=== PATIENT | female | born 1980 | race Two or more races ===

== ENCOUNTER 2023-12-30 07:21 | Emergency (ER) | payer OTHER ==
[~2023-12-30] VITALS: Ht 162.6 cm; Wt 83.5 kg
[2023-12-30 08:31] LABS: HEMATOCRIT 39.4 % (36.0-45.00); HEMOGLOBIN 13.1 g/dL (12.0-15.00); MEAN CELL VOLUME 87.5 fL (80.00-100.00); MEAN CORPUSCULAR HEMOGLOBIN 29.1 pg (27.00-32.0); MEAN CORPUSCULAR HGB CONC 33.2 g/dl (32.0-36.0); PLATELET COUNT 243 K/uL (150-450); RED CELL DISTRIBUTION WIDTH 14.3 % (11.5-14.5)
[2023-12-30 08:52] LABS: PH,URINE 5.5 (5.0-8.0); URINE APPEARANCE Cloudy; URINE BILIRRUBIN Negative (NEGATIVE); URINE BLOOD Moderate; URINE COLOR Yellow; URINE GLUCOSE Negative (NEGATIVE); URINE LEUKOCYTE Small; URINE NITRATE Negative; URINE PROTEIN Negative (NEGATIVE); URINE UROBILINOGEN 0.2 E.U./dl
[2023-12-30 08:56] LABS: URINE BACTERIA 3018.7 uL (0.0-1933); URINE EPITHELIAL CELLS 108.9 uL (0.0-38.8); URINE RBC 14.8 uL (0.0-20.8); URINE WBC 42.5 uL (0.0-23.2)
[2023-12-30 09:18] LABS: CALCIUM 9.3 mg/dL (8.5-10.1); CREATININE SERUM 0.73 mg/dL (0.55-1.02); GFR 86.61; POTASSIUM 4.09 mEq/L (3.5-5.1)
[2023-12-30] MEDS ORDERED: CEFTRIAXONE SODIUM 1,000 MG VIAL IV STA (12:17)
== END 2023-12-30 13:03 | disposition home or self-care (01) ==
LOC: ER 07:22
PROVIDERS: General Practice
DX: N39.0 Urinary tract infection, site not specified (principal); N93.9 Abnormal uterine and vaginal bleeding, unspecified; Z88.2 Allergy status to sulfonamides